=== PATIENT | female | born 1955 | race Caucasian/White ===

== ENCOUNTER 2017-09-22 10:20 | Day surgery (SDC) | payer OTHER ==
[~2017-09-22] VITALS: Ht 162.6 cm; Wt 93.0 kg
[~2017-09-22 10:20] MED LIST: MEDR4PAK3 PO; OXYC-360 PO; OXYC20; PROM25SU8 PO; [UNRECOGNIZED DRUG - CODE] PO
[2017-09-22] MEDS ORDERED: LIDOCAINE HCL 1% PF 5 ML SYRINGE OTHER ONE (10:21)
[2017-09-22] MEDS ORDERED: ONDANSETRON HCL 4 MG/2 ML VIAL IV PUSH ONE (10:21)
[2017-09-22] MEDS ORDERED: PROPOFOL 200 MG/20 ML AMP IV ONE (10:21)
[2017-09-22] MEDS ORDERED: DEXAMETHASONE SOD PHOS 4 MG/ML VIAL IV ONE (10:21)
[2017-09-22] MEDS ORDERED: VANCOMYCIN 1 GM/200 ML INJ 200 ML IV SCH (10:45)
[2017-09-22] MEDS ORDERED: CHLORHEXIDINE GLUCONATE 4% SOLN 120 ML BTL TOPICAL SCH ×2 (10:45→12:45)
[2017-09-22] MEDS ORDERED: ceFAZolin 2 GM PREMIX 50 ML IV SCH (10:45)
[2017-09-22] MEDS ORDERED: POVIDONE IODINE 7.5% SCRUB 118 ML BOTTLE TOPICAL SCH ×2 (10:45→12:45)
[2017-09-22] MEDS ORDERED: CRAN1CAP6 PO (11:39)
[2017-09-22] MEDS ORDERED: MELO15TA20 PO (11:39)
[2017-09-22] MEDS ORDERED: CHLO25TA2 PO (11:39)
[2017-09-22] MEDS ORDERED: AMLO5TAB2 PO (11:39)
[2017-09-22] MEDS ORDERED: CALC600T10 PO (11:40)
[2017-09-22] MEDS ORDERED: MULT-11 PO (11:40)
[2017-09-22] MEDS ORDERED: SODIUM CHLORID 0.9% 500 ML IV PRN (12:30)
[2017-09-22] MEDS ORDERED: LACTATED RINGER'S 1000 ML IV PRN (12:30)
[2017-09-22] MEDS ORDERED: INSULIN HUMAN REGULAR 1,000 UNITS/10 ML VIAL SQ PRN (12:30)
[2017-09-22] MEDS ORDERED: POVIDONE IODINE 5% (ANTISEPSIS KIT) 4 APPLICATIONS EACH NARE PRN (12:30)
[2017-09-22] MEDS ORDERED: CHLORHEXIDINE GLUCONATE 2 % 1 PACK (2 CLOTHS) TOPICAL PRN (12:30)
[2017-09-22] MEDS ORDERED: METOPROLOL TARTRATE 25 MG TAB PO PRN (12:30)
[2017-09-22] MEDS ORDERED: ceFAZolin 2 GM/NS PREMIX 100 ML IV SCH (12:45)
[2017-09-22] MEDS ORDERED: VANCOMYCIN 1 GM/200 ML PREMIX IV SCH (12:45)
[2017-09-22] MEDS ORDERED: GENTAMICIN SULFATE 80 MG/2 ML VIAL ONE (14:30)
[2017-09-22] MEDS ORDERED: BUPIVACAINE HCL PF 0.5% 30 ML VIAL ONE (14:30)
[2017-09-22] MEDS ORDERED: NEOMYCIN/POLYMYXIN 1 ML G.U. IRRIGANT ONE ×2 (14:36→14:38)
--- NOTE | 2017-09-22 15:44 | EKG ---
Date Performed: 09/22/2017 Time Performed: 10:57:13 PTAGE: 61 years EKG: Sinus rhythm POSSIBLE ANTERIOR MYOCARDIAL INFARCTION , PROBABLY OLD BORDERLINE ECG Since the PREVIOUS TRACING , no significant change noted PREVIOUS TRACIN05/04/2012 09.23 DOCTOR: Henry Michael Interpretating Date/Time 09/22/2017 15:43:36
[2017-09-22] MEDS ORDERED: fentaNYL CITRATE 250 MCG/5 ML AMP ONE (16:16)
[2017-09-22] MEDS ORDERED: ACETAMINOPHEN/HYDROcodone 325 MG/5 MG TAB PO PRN ×2 (17:45)
[2017-09-22] MEDS ORDERED: traMADol HCL 50 MG TAB PO PRN (17:45)
[2017-09-22] MEDS ORDERED: SODIUM CHLORIDE 0.9% FLUSH 10 ML FLUSH IV FLUSH PRN (17:45)
[2017-09-22] MEDS ORDERED: ONDANSETRON ODT 4 MG TAB PO PRN (17:45)
--- NOTE | 2017-09-22 17:48 | PD.OP ---
cc: Devin Houston MD Operative Report Date of Surgery: Sep 22, 2017 Preoperative Diagnosis: Left distal radius intra-articular comminuted greater than three-part fracture Postoperative Diagnosis: Same Procedure: Left distal radius fracture open reduction and internal fixation of greater than 3 part fracture Anesthesia: General Surgeon: Devin Hosuton Testing Engineer(s): MADY Justice The surgical procedure was assisted by my Advanced Registered Nurse Practitioner. My PHYSICIAN SCIENTIST presence was necessary throughout this case for the manipulation and positioning of the surgical extremity. My PHYSICIAN SCIENTIST was assisting me throughout the duration of this procedure. The skill set of an Advance Registered Nurse Practitioner was medically necessary to complete this procedure. During the surgical case, the surgical garment assembler was working at the back table and the Advance Registered Nurse Practitioner was directly assisting me. Operation and Findings: Tourniquet time: 25 minutes at 250 mmHg of pressure Estimated blood loss: 10 cc The patient received intravenous vancomycin and Ancef. After the appropriate anesthesia was administered, the patient's arm was prepped and draped in the usual sterile fashion. Local anesthetic was given, and the arm was exsanguinated. The tourniquet was raised to 250 mmHg of pressure. We made a standard incision over the volar aspect of the forearm. We then dissected through the flexor carpi radialis sub- sheath. The pronator quadratus was reflected. We now visualized the distal radius fracture very well. We were able to anatomically reduce the lunate fossa fragment of the distal radius. However the comminuted radial styloid fragment remains displaced. We decided to go ahead and fixate the fracture in stages. With the lunate fossa fragment reduced anatomically we applied the [employer] precontoured distal radius plate. We used a wide plate so as to have as many screw options available distally as possible. The plate was slightly rotated so that the most ulnar screw would not enter into the DRUJ. The plate was secured to the distal radius first with the sliding screw hole. This was then followed by locking screws distally and proximally. We then turned our attention to the radial styloid fragment. There were fractures in multiple planes. We moved in anterior fragment out of the way so that we could use a dental pick to reduce the radial styloid fracture anatomically. We then placed that fragment back into position. We then fixated this portion of the fracture with 3 locking screws. We took final fluoroscopic imaging of the wrist. We found no intra-articular penetration of the screws. The patient had full range of motion of the wrist with no crepitus. There is anatomic alignment of the comminuted fracture. The tourniquet was released and hemostasis was achieved. The patient had a 2+ radial pulse. We irrigated the incision thoroughly. We then closed skin with 2 -0 Vicryl followed by 3-0 nylon. The arm was dressed and a volar splint was applied. The postoperative plan is to start delayed range of motion of the wrist. Devin Houston MD Sep 22, 2017 17:48
[2017-09-22] MEDS ORDERED: DO NOT ADM ANY ANTICOAGULANT DRUGS PRN (17:50)
[2017-09-22] MEDS ORDERED: HYDROmorphone HCL PF 0.5 MG/0.5 ML SYRINGE ONE ×2 (18:03→18:23)
--- NOTE | 2017-09-22 19:05 | RADRPT ---
EXAM DATE: 09/22/2017 6:35 PM EDT AGE/SEX: 61 years / Female INDICATIONS: Orif left wrist. CLINICAL DATA: This is the patient's initial encounter. Patient reports that signs and symptoms have been present for 1 day and indicates a pain score of Nonresponsive. MEDICAL/SURGICAL HISTORY: None. None. COMPARISON: No prior exams available for comparison. FINDINGS: 2 images from the OR have been obtained. There is a plate along the volar aspect of the radius. The r adius is well aligned. There does appear to be a fracture at the base of the ulnar styloid. CONCLUSION: Successful placement of a distal radial fixation plate. Electronically signed by: Jose Guadalupe Stock MD 09/22/2017 7:03 PM EDT
[2017-09-22 19:10] VITALS: BP 127/60; PULSE 59; RESP 15; O2SAT 96
[2017-09-22 19:20] VITALS: TEMP 97.6
[2017-09-22] MEDS ORDERED: SODIUM CHLORIDE 0.9% FLUSH 10 ML FLUSH IV FLUSH SCH (21:00)
== END 2017-09-22 19:20 | disposition home or self-care (01) ==
LOC: HSDC 10:20
PROVIDERS: ATTEND Orthopaedic Surgery
DX: S52.572A Other intraarticular fracture of lower end of left radius, initial encounter for closed fracture (principal); W10.9XXA Fall (on) (from) unspecified stairs and steps, initial encounter; Y93.01 Activity, walking, marching and hiking; Y92.018 Other place in single-family (private) house as the place of occurrence of the external cause; Z01.810 Encounter for preprocedural cardiovascular examination; I10 Essential (primary) hypertension; I34.1 Nonrheumatic mitral (valve) prolapse
CPT/HCPCS: 01830; 25609; 73100; 76000; 93005; C1713; J0690; J1100; J1170; J2405; J3010; J3370; J1580